=== PATIENT | female | born 2000 | race Caucasian/White ===

== ENCOUNTER → 2024-01-13 14:20 | Outpatient (REF) | payer OTHER, SELFPAY | LOC: RAD 14:20 | PROVIDERS: ATTENDING PHYSICIAN Nurse Practitioner Adult Health | DX: M54.50 Low back pain, unspecified (principal) | CPT/HCPCS: 72110 ==

== ENCOUNTER → 2024-03-18 09:48 | Outpatient (REF) | payer OTHER, SELFPAY | LOC: MRI 3T 09:48 | PROVIDERS: ATTENDING PHYSICIAN Nurse Practitioner Adult Health | DX: M54.50 Low back pain, unspecified (principal); M51.36 Other intervertebral disc degeneration, lumbar region | CPT/HCPCS: 72148 ==